=== PATIENT | female | born 1965 | race Caucasian/White ===

== ENCOUNTER 2017-12-06 12:20 | Inpatient (IN) ==
[2017-12-06] MEDS ORDERED: Ipratropium/Albuterol Neb 3 ML IH ONE ×2 (13:20→14:14)
[2017-12-06 13:34] LABS: Hematocrit 37.8 % (35.3-44.9); Hemoglobin 12.6 g/dL (11.5-15.4); Mean Corpuscular HGB Conc 33.3 g/dL (31.6-35.5); Mean Corpuscular Volume 87.1 fL (83.0-100.0); Mean Platelet Volume 8.8 fL (9.4-12.4); Platelet Count 302 K/mcL (140-400); Red Blood Count 4.34 M/mcL (3.82-4.97); Red Cell Distribution Width 13.7 % (11.5-14.5)
--- NOTE | 2017-12-06 13:34 | Emergency Department Note ---
Disposition Clinical Impression: COPD exacerbation Fever Qualifiers: Fever type: unspecified Qualified Code(s): R50.9 - Fever, unspecified Disposition: Admitted As Inpatient Condition: Fair Forms: ED Satisfaction Letter, Work/School Release Time of Disposition: 14:44 General Adult HPI - General Chief complaint: ED General Medical Stated complaint: Flu Like symptoms Time Seen by Provider: 12/06/17 13:15 Source: patient Mode of arrival: ambulatory Limitations: no limitations Nursing Notes Reviewed: Yes Vital Signs Reviewed: Yes - History of Present Illness HPI Narrative: 52-year-old with a history COPD comes in with increasing cough shortness of breath and fever thinks she may also have the flu. Pt Subjective Complaint: Fever cough bodyaches Onset (ago): day(s) Location: upper extremity, lower extremity Radiation: non-radiation Pain Scale: 10 Quality: aching Consistency: constant Improves with: nothing Worsens with: nothing Associated symptoms: Reports: cough, fever/chills - Related Data Home Medications Medication Instructions Recorded Confirmed Albuterol Neb [Proventil Neb] 2.5 mg IH Q4HR PRN 10/20/17 11/03/17 Albuterol Sulfate [Ventolin Hfa] 2 puff IH Q4-6H PRN 10/20/17 11/03/17 Cetirizine HCl [Cetirizine HCl] 10 mg PO DAILY 10/20/17 11/03/17 Fluticasone Propionate Nasal 1 spr NS DAILY PRN 10/20/17 11/03/17 [Flonase] Fluticasone/Vilanterol [Breo 1 puff IH DAILY 10/20/17 11/03/17 Ellipta 100-25 Mcg INH] LORazepam [Ativan] 1 mg PO Q6H PRN 10/20/17 11/03/17 OXcarbazepine [Oxcarbazepine] 300 mg PO BID 10/20/17 11/03/17 Tiotropium [place] [Spiriva 2 puff IH DAILY 11/16/17 11/16/17 Respimat] Azithromycin [Zithromax] 250 mg PO QMWF 11/25/17 11/25/17 Allergies Allergy/AdvReac Type Severity Reaction Status Date / Time egg AdvReac Intermediate Hives Verified 10/20/17 09:18 ibuprofen [From Advil] AdvReac Intermediate Swelling Verified 10/20/17 09:18 of Lip/Tongue/Throat All systems ED: reviewed and negative except as stated. Constitutional: Denies: fever, chills, weakness, weight change Eyes: Denies: eye pain, eye discharge, vision change ENT ED: Denies: ear pain, throat pain, dental pain, hearing loss, epistaxis, congestion, dysphagia Cardiovascular: Denies: chest pain, palpitations, dyspnea on exertion, edema, syncope Respiratory: Reports: cough, dyspnea, wheezes. Denies: hemoptysis, stridor Gastrointestinal: Denies: abdominal pain, nausea, vomiting, diarrhea, constipation, hematemesis, melena, hematochezia Genitourinary: Denies: dysuria, frequency, hematuria, discharge Musculoskeletal: Reports: arthralgia. Denies: back pain, neck pain, myalgia Integumentary: Denies: rash, abrasion, lesions Neurological: Denies: headache, weakness, numbness, paresthesias, confusion, abnormal gait, vertigo Psychiatric: Denies: anxiety, depression, suicidal thoughts, homicidal thoughts , auditory hallucinations, visual hallucinations Endocrine: Denies: fatigue Hematological/Lymphatic: Denies: easy bleeding, easy bruising Allergic/Immunologic: Denies: facial swelling, urticaria Past Medical History - Past Medical History Medical history: Reports: COPD Psychiatric history: Reports: anxiety, depression MANAGER IN HOME history: Reports: no MANAGER IN HOME history - Social History Smoking Status: Former smoker Smokeless Tobacco Status: No Alcohol use: Reports: none Drug use: Reports: none Physical Exam - General Limitations: no limitations General appearance: alert - Head Head exam: atraumatic, normocephalic, normal inspection - Eye Eye exam: Present: normal appearance, PERRL, EOMI - ENT ENT exam: normal exam, normal oropharynx, mucous membranes moist - Neck Neck exam: Present: normal inspection, full ROM, trachea midline - Chest Chest inspection: Present: normal inspection, symmetric chest wall rise - Respiratory Respiratory exam: Present: wheezes, accessory muscle use, prolonged expiratory phase - Cardiovascular Cardiovascular exam: Present: regular rate, normal rhythm, normal heart sounds - Abdominal Exam Abdominal exam: Present: soft, Non-Tender. Absent: tenderness, distention, guarding, rebound, rigidity - Extremities Exam Extremities exam: Present: normal inspection, full ROM. Absent: tenderness, pedal edema - Expanded Lower Extremity Exam Neurovascular/Tendon exam: Absent: motor deficit, sensory deficit, tendon deficit Gait: observed and normal - Back Exam Back exam: Present: normal inspection, full ROM. Absent: tenderness - Neurological Exam Neurological exam: Present: alert, oriented X3 - Psychiatric Psychiatric exam: Present: normal affect, normal mood - Skin Skin exam: Present: warm, dry, intact, normal color Course - Reevaluation(s) Reevaluation #1: 52-year-old with COPD comes in with an exacerbation of COPD. Time: 14:43 - Consultations Consultation #1: Discussed with , admit Time: 14:43 Vital Signs Temperature 101.4 F H 12/06/17 12:50 Pulse Rate 112 12/06/17 12:50 Respiratory Rate 18 12/06/17 12:50 Blood Pressure 114/72 12/06/17 12:50 O2 Sat by Pulse Oximetry 94 12/06/17 12:50 Temperature 101.4 F H 12/06/17 12:50 Pulse Rate 112 12/06/17 12:50 Respiratory Rate 18 12/06/17 14:25 Blood Pressure 114/72 12/06/17 12:50 O2 Sat by Pulse Oximetry 96 12/06/17 14:25 Oxygen Delivery Oxygen Delivery Nasal Cannula Medical Decision Making - Lab Data Result diagrams: 12/06/17 13:15 12/06/17 13:15 Lab Results 12/06/17 12/06/17 12/06/17 Range/Units 13:15 13:15 13:15 WBC 5.9 (4.3-11.1) K/mcL RBC 4.34 (3.82-4.97) M/mcL Hgb 12.6 (11.5-15.4) g/dL Hct 37.8 (35.3-44.9) % MCV 87.1 (83.0-100.0) fL MCH 29.0 (28.0-33.3) pg MCHC 33.3 (31.6-35.5) g/dL RDW 13.7 (11.5-14.5) % Plt Count 302 (140-400) K/mcL MPV 8.8 L (9.4-12.4) fL Seg Neutrophils % 56.0 % Lymphocytes % 28.0 % Monocytes % 16.0 % Neutrophils # 3.3 (1.6-8.9) K/mcL Lymphocytes # 1.7 (0.6-4.6) K/mcL Monocytes # 0.9 (0.0-1.3) K/mcL Reactive Lymphocytes Present A (Not Present) Platelet Estimate Normal (Normal) Sodium 138 (136-145) mEq/L Potassium 3.5 (3.5-5.1) mEq/L Chloride 100 (98-107) mEq/L Carbon Dioxide 31 H (23-29) mEq/L BUN 11 (6-20) mg/dL Creatinine 0.87 (0.60-1.20) mg/dL Est GFR ( Amer) > 60 (> 60) Est GFR (Non-Af Amer) > 60 (> 60) BUN/Creatinine Ratio 13 (6-26) Glucose 99 (70-105) mg/dL Calculated Osmolality 285 (280-300) Lactic Acid 1.0 (0.5-2.2) mmol/L Calcium 9.4 (8.6-10.3) mg/dL - Radiology Data Radiology results reviewed: Yes I reviewed the patient's radiology results. Chest X-Ray 12/06/17 14:07 IMPRESSION: Lungs clear. D/ / Dino Perdue MD / Dino Perdue MD Interpreting Provider: Dino Perdue MD
[2017-12-06 13:48] LABS: BUN/Creatinine Ratio 13 (6-26); Blood Urea Nitrogen 11 mg/dL (6-20); Calcium 9.4 mg/dL (8.6-10.3); Carbon Dioxide 31 mEq/L (23-29); Chloride 100 mEq/L (98-107); Glucose 99 mg/dL (70-105); Osmolality,Calculated 285 (280-300); Potassium 3.5 mEq/L (3.5-5.1); Sodium 138 mEq/L (136-145); eGFR For African Americans > 60 (> 60); eGFR For Non-African Americans > 60 (> 60)
[2017-12-06 14:06] LABS: Lymphocytes # 1.7 K/mcL (0.6-4.6); Monocytes # 0.9 K/mcL (0.0-1.3); Neutrophils # 3.3 K/mcL (1.6-8.9); Platelet Estimate Normal (Normal); Reactive Lymphocytes Present (Not Present)
--- NOTE | 2017-12-06 15:19 | Internal Med History&Physical ---
Date of Encounter: 12/06/17 Time of Encounter: 15:16 Assessment and Plan (1) Bronchitis Current visit: Yes Status: Acute Patient with bronchitis cough productive of thick yellow greenish sputum for 3 days chest x-ray does not show pneumonia (2) Anxiety and depression Current visit: Yes Status: Acute Resume home medication (3) COPD exacerbation Current visit: Yes Status: Acute Acute on chronic COPD exacerbation due to bronchitis was started on IV steroids and DuoNeb treatment Internal Medicine - H&P: HPI Chief complaint: sob Admitted From: Emergency Dept Plans for Post Hospital Care: Home History of present illness: Ms. Andrea is a 52 year old female Patient with history of CVA COPD last PFT shows very severe obstructive pattern of 28% with severe gas exchange abnormality patient has a history of anxiety and depression. Patient presented emergency room with cough productive of thick yellow greenish sputum for about 3 days with increased shortness of breath In the emergency room patient was actively wheezing given breathing treatment chest x-ray does not show pneumonia patient had been admitted for COPD exacerbation treatment. Because of bronchitis was started on Levaquin Past Med Surg Social Fam HX - Past Medical History Medical history: COPD Psychiatric history: anxiety, depression - Social History Smoking Status: Former smoker Smokeless Tobacco Status: No Alcohol use: none Drug use: none - Family History Mother Adopted: No Family Member Ethnicity: Non- Living Status: Still Living Hx Family Cardiac Disorders: Yes (low BP) Hx Family Respiratory Disorders: No Hx Family Cancer: No Hx Family GI Disorders: Yes (Bleeding, unable to locate) Hx Family Endocrine Disorder: No Hx Family Neuromuscular Disorders: No Hx Family Neurologic Disorders: No Hx Family HEENT Disorders: No Hx Family Autoimmune Disorders: No (Glasses, KOTZEBUE) Internal Medicine - H&P: Meds Albuterol Neb [Proventil Neb] 2.5 mg IH Q4HR PRN 10/20/17 [History] Albuterol Sulfate [Ventolin Hfa] 2 puff IH Q4-6H PRN 10/20/17 [History] Cetirizine HCl [Cetirizine HCl] 10 mg PO DAILY 10/20/17 [History] Fluticasone Propionate Nasal [Flonase] 1 spr NS DAILY PRN 10/20/17 [History] Fluticasone/Vilanterol [Breo Ellipta 100-25 Mcg INH] 1 puff IH DAILY 10/20/17 [ History] LORazepam [Ativan] 1 mg PO Q6H PRN 10/20/17 [History] Tiotropium [place] [Spiriva Respimat] 2 puff IH DAILY 11/16/17 [History] Azithromycin [Zithromax] 250 mg PO QMWF 11/25/17 [History] Ipratropium/Albuterol Neb [Duoneb] 3 ml IH Q4H 12/06/17 [History] Levofloxacin [Levaquin] 500 mg PO DAILY 12/06/17 [History] OXcarbazepine [Oxcarbazepine] 600 mg PO HS 12/06/17 [History] Roflumilast [Daliresp] 500 mcg PO DAILY 12/06/17 [History] predniSONE [PredniSONE] See Taper PO DAILY 12/06/17 [History] 3 Allergy/AdvReac Type Severity Reaction Status Date / Time egg AdvReac Intermediate Hives Verified 10/20/17 09:18 ibuprofen [From Advil] AdvReac Intermediate Swelling Verified 10/20/17 09:18 of Lip/Tongue/Throat All Systems PM: A 10-system review of systems was performed and is negative for pertinent findings except as documented above in the HPI. - Constitutional Constitutional: no chills, no fever(s), no night sweats - EENT Eyes: no change in vision, no discharge, no pain, no photophobia Ears: no ear discharge, no ear pain, no tinnitus Nose, mouth and throat: no dysphagia, no nasal discharge, no neck pain, no sore throat - Cardiovascular Cardiovascular ROS IM: dyspnea, dyspnea on exertion - Respiratory Respiratory: dyspnea on exertion, wheezing - Gastrointestinal Gastrointestinal: no abdominal pain, no diarrhea, no hematemesis, no hematochezia, no melena, no nausea, no vomiting - Genitourinary Genitourinary: no change in urinary stream, no dysuria, no flank pain, no hematuria - Musculoskeletal Musculoskeletal ROS IM: no numbness, no tingling - Integumentary Integumentary IM: no rash, no unusual bruising - Neurological Neurological ROS: no confusion, no convulsions, no focal weakness, no numbness, no tingling, no tremor(s) - Constitutional Vitals: Temp Pulse Resp BP Pulse Ox 101.4 F H 112 18 114/72 96 12/06/17 12:50 12/06/17 12:50 12/06/17 14:25 12/06/17 12:50 12/06/17 14:25 General appearance: Present: mild distress - Eye Eye exam: Present: PERRL, conjuntiva pink, sclera anicteric Pupils: Present: PERRL - Respiratory Respiratory exam: Present: prolonged expiratory phase, rhonchi, wheezes - Cardiovascular Cardiovascular exam: Present: RRR, +S1, +S2. Absent: diastolic murmur, gallop, rubs, systolic murmur - GI/Abdominal GI/Abdominal exam: Present: normal bowel sounds, soft, no peritoneal signs. Absent: distended, tenderness - Extremities Exam Extremities exam: Present: warm, radial pulses palpable and symmetrical. Absent : calf tenderness, cyanotic, pedal edema Internal Med - H&P Results - Labs CBC & Chem 7: 12/06/17 13:15 12/06/17 13:15
[2017-12-06] MEDS ORDERED: traMADol 50 MG TABLET PO PRN (15:21)
[2017-12-06] MEDS ORDERED: Naloxone 0.4 MG/ML INJ IVP PRN (15:21)
[2017-12-06] MEDS ORDERED: Acetaminophen 325 MG TABLET PO PRN (15:21)
[2017-12-06] MEDS ORDERED: Fluticasone Propionate Nasal 50 MCG/SPRAY BOTTLE NS PRN (15:25)
[2017-12-06] MEDS ORDERED: *HR* LORazepam 1 MG TABLET PO PRN (15:25)
[2017-12-06] MEDS ORDERED: Ipratropium/Albuterol Neb 3 ML IH PRN (15:26)
[2017-12-06] MEDS ORDERED: 0.9 % Sodium Chloride 1,000 ML IVC SCH (15:30)
[2017-12-06] MEDS: Ipratropium/Albuterol Neb 3 ML IH SCH ×3 (15:33→23:32)
[2017-12-06] MEDS ORDERED: MethylPREDNISolone 40 MG/ML VIAL IVP SCH (16:00)
[2017-12-06 16:16] VITALS: BP 129/83
[2017-12-06] MEDS ORDERED: OXcarbazepine 150 MG TABLET PO SCH (21:00)
[2017-12-07] MEDS ORDERED: *HR* Enoxaparin 40 MG/0.4 ML SYRINGE SQ SCH (06:00)
[2017-12-07] MEDS ORDERED: (Roflumilast [Daliresp] 500 MCG) PO SCH (09:00)
[2017-12-07] MEDS ORDERED: (Fluticasone/Vilanterol [Breo Ellipta 100-25 Mcg Inh] IH SCH (09:00)
[2017-12-07] MEDS ORDERED: Loratadine 10 MG TABLET PO SCH (09:00)
[2017-12-07] MEDS ORDERED: Levofloxacin 750 MG/150 ML 750 MG/150 ML BAG IVPB SCH (09:00)
--- NOTE | 2017-12-14 20:11 | Event Note ---
Date of Encounter: 12/14/17 Time of Encounter: 20:11 Patient left AMA i was not aware that he left AMA
== END 2017-12-06 19:25 | disposition left against medical advice (07) | DRG 202 ==
LOC: 3BNU 12:20 → EMEROO 12:20 → 3BNU 15:49
PROVIDERS: ADMIT Internal Medicine Cardiovascular Disease; ATTEND Registered Nurse

== ENCOUNTER 2020-09-19 17:10 | Inpatient (IN) ==
[2020-09-19] MEDS ORDERED: Ipratropium/Albuterol Neb 3 ML IH ONE (17:39)
[2020-09-19 17:49] LABS: Basophils # 0.1 K/mcL (0.0-0.2); Basophils % 0.6 %; Eosinophils # 0.5 K/mcL (0.0-0.6); Eosinophils % 4.9 %; Hematocrit 36.3 % (35.3-44.9); Hemoglobin 11.8 g/dL (11.5-15.4); Immature Granulocytes % 0.3 % (0-4); Lymphocytes # 2.1 K/mcL (0.6-4.6); Lymphocytes % 21.1 %; Mean Corpuscular HGB Conc 32.5 g/dL (31.6-35.5); Mean Corpuscular Hemoglobin 27.8 pg (28.0-33.3); Mean Corpuscular Volume 85.6 fL (83.0-100.0); Mean Platelet Volume 8.8 fL (9.4-12.4); Monocytes # 0.9 K/mcL (0.0-1.3); Monocytes % 9.4 %; Neutrophils # 6.3 K/mcL (1.6-8.9); Platelet Count 403 K/mcL (140-400); Red Blood Count 4.24 M/mcL (3.82-4.97); Red Cell Distribution Width 12.5 % (11.5-14.5); Segmented Neutrophils % 63.7 %; White Blood Count 9.8 K/mcL (4.3-11.1)
[2020-09-19 18:00] LABS: INR 1.1; Prothrombin Time 12.6 Seconds (9.4-12.1)
[2020-09-19 18:02] LABS: Activated Partial Thrombo Time 31.2 Seconds (26.0-36.0)
[2020-09-19 18:11] LABS: Alanine Aminotransferase 10 Units/L (7-52); Albumin 4.4 g/dL (3.5-5.7); Albumin/Globulin Ratio 1.4 (1.1-2.2); Alkaline Phosphatase 87 Units/L (34-104); Aspartate Amino Transferase 12 Units/L (13-39); BUN/Creatinine Ratio 15 (6-26); Bilirubin,Direct 0.1 mg/dL (0.0-0.2); Bilirubin,Indirect 0.3 mg/dL (0.0-1.0); Bilirubin,Total 0.4 mg/dL (0.3-1.0); Blood Urea Nitrogen 9 mg/dL (6-20); Calcium 9.3 mg/dL (8.6-10.3); Carbon Dioxide 33 mEq/L (23-29); Chloride 100 mEq/L (98-107); Globulin 3.2 g/dL (2.4-3.5); Glucose 95 mg/dL (70-105); Osmolality,Calculated 288 (280-300); Potassium 3.6 mEq/L (3.5-5.1); Sodium 140 mEq/L (136-145); Total Protein 7.6 g/dL (6.4-8.9); eGFR For African Americans > 60 (> 60); eGFR For Non-African Americans > 60 (> 60)
[2020-09-19 18:18] LABS: Troponin I < 0.03 ng/mL (< 0.04)
[2020-09-19] MEDS ORDERED: methylPREDNISolone 125 MG/2 ML VIAL IVP STA (20:47)
[2020-09-20 00:33] LABS: Adenovirus Not Detected (Not Detect); Bordetella Pertussis Not Detected (Not Detect); Chlamydophila pneumoniae Not Detected (Not Detect); Coronavirus 229E Not Detected (Not Detect); Coronavirus HKU1 Not Detected (Not Detect); Coronavirus NL63 Not Detected (Not Detect); Coronavirus OC43 Not Detected (Not Detect); Human Metapneumovirus Not Detected (Not Detect); Human Rhinovirus/Enterovirus Not Detected (Not Detect); Influenza A Subtype 2009 H1 Not Detected (Not Detect); Influenza B Not Detected (Not Detect); Mycoplasma pneumoniae Not Detected (Not Detect); Parainfluenza Virus 1 Not Detected (Not Detect); Parainfluenza Virus 2 Not Detected (Not Detect); Parainfluenza Virus 3 Not Detected (Not Detect); Parainfluenza Virus 4 Not Detected (Not Detect); Respiratory Syncytial Virus Not Detected (Not Detect); SARS-CoV-2 Not Detected (Not Detect)
[2020-09-20] MEDS ORDERED: Ondansetron 4 MG/2 ML VIAL IVP PRN (01:14)
[2020-09-20] MEDS ORDERED: Naloxone 0.4 MG/ML INJ IVP PRN (01:14)
[2020-09-20] MEDS ORDERED: Nitroglycerin 0.4 MG TAB.SUBL SL PRN (01:16)
[2020-09-20] MEDS ORDERED: Fluticasone Propionate Nasal 50 MCG/SPRAY BOTTLE NS PRN (01:17)
[2020-09-20] MEDS ORDERED: Acetaminophen 325 MG TABLET PO PRN (01:17)
[2020-09-20] MEDS ORDERED: Isovue-370 500 ML BOTTLE IVP ONE (01:44)
[2020-09-20] MEDS: Ipratropium/Albuterol Neb 3 ML IH SCH ×6 (03:20→23:51)
[2020-09-20] MEDS: *HR* Heparin 5,000 UNIT/ML VIAL SQ SCH ×3 (06:39→17:57)
[2020-09-20] MEDS: MethylPREDNISolone 40 MG/ML VIAL IVP SCH ×3 (06:39→21:24)
[2020-09-20 06:54] LABS: Basophils % 0.4 %; Hematocrit 33.1 % (35.3-44.9); Hemoglobin 10.9 g/dL (11.5-15.4); Immature Granulocytes % 0.4 % (0-4); Lymphocytes # 0.5 K/mcL (0.6-4.6); Lymphocytes % 9.3 %; Mean Corpuscular HGB Conc 32.9 g/dL (31.6-35.5); Mean Corpuscular Hemoglobin 28.1 pg (28.0-33.3); Mean Corpuscular Volume 85.3 fL (83.0-100.0); Mean Platelet Volume 8.8 fL (9.4-12.4); Monocytes # 0.1 K/mcL (0.0-1.3); Monocytes % 1.1 %; Neutrophils # 4.9 K/mcL (1.6-8.9); Platelet Count 358 K/mcL (140-400); Red Blood Count 3.88 M/mcL (3.82-4.97); Red Cell Distribution Width 12.4 % (11.5-14.5); Segmented Neutrophils % 88.8 %; White Blood Count 5.5 K/mcL (4.3-11.1)
[2020-09-20 07:22] LABS: BUN/Creatinine Ratio 19 (6-26); Blood Urea Nitrogen 13 mg/dL (6-20); Calcium 9.5 mg/dL (8.6-10.3); Carbon Dioxide 31 mEq/L (23-29); Chloride 97 mEq/L (98-107); Glucose 209 mg/dL (70-105); Osmolality,Calculated 290 (280-300); Potassium 3.8 mEq/L (3.5-5.1); Sodium 137 mEq/L (136-145); eGFR For African Americans > 60 (> 60); eGFR For Non-African Americans > 60 (> 60)
[2020-09-20] MEDS ORDERED: Perflutren Lipid Microsphere 1.3 ML in 0.9 % Sodium Chloride 8.7 ML IVP PRN (08:04)
[2020-09-20] MEDS ORDERED: NON-FORMULARY MEDICATION 1 EACH EACH (Fluticasone/Vilanterol [Breo Ellipta 100-25 Mcg Inh] IH SCH (09:00)
[2020-09-20] MEDS ORDERED: BREO ELLIPTA IH SCH (09:00)
[2020-09-20] MEDS ORDERED: NON-FORMULARY MEDICATION 1 EACH EACH (Fluticasone/Umeclidin/Vilanter [Trelegy Ellipta 100- IH SCH (09:00)
[2020-09-20] MEDS: Loratadine 10 MG TABLET PO SCH (09:05)
[2020-09-20] MEDS: Prenatal Vit/FA 1 EACH TABLET PO SCH (09:05)
[2020-09-20] MEDS: Cholecalciferol (D-3) 1,000 UNIT (25MCG) TABLET PO SCH (09:05)
[2020-09-20] MEDS: Roflumilast [Daliresp] 500 MCG PO SCH (09:06)
[2020-09-20] MEDS: traZODone 50 MG TABLET PO SCH ×2 (09:06→21:24)
[2020-09-20] MEDS: Budesonide/Formoterol 160/4.5 1 PUFF INH IH SCH (12:06)
[2020-09-21] MEDS: Ipratropium/Albuterol Neb 3 ML IH SCH ×4 (03:11→13:17)
[2020-09-21] MEDS: *HR* Heparin 5,000 UNIT/ML VIAL SQ SCH (06:18)
[2020-09-21 07:04] VITALS: BP 133/76
[2020-09-21] MEDS ORDERED: Regadenoson 0.4 MG/5 ML SYRINGE IVP ONE (09:51)
[2020-09-21] MEDS ORDERED: *HR* LORazepam 2 MG/ML VIAL IVP ONE (09:55)
[2020-09-21] MEDS: Budesonide/Formoterol 160/4.5 1 PUFF INH IH SCH (11:35)
[2020-09-21] MEDS: Roflumilast [Daliresp] 500 MCG PO SCH (12:59)
[2020-09-21] MEDS: Prenatal Vit/FA 1 EACH TABLET PO SCH (13:05)
[2020-09-21] MEDS: traZODone 50 MG TABLET PO SCH (13:05)
[2020-09-21] MEDS: Loratadine 10 MG TABLET PO SCH (13:06)
[2020-09-21] MEDS: MethylPREDNISolone 40 MG/ML VIAL IVP SCH (13:06)
[2020-09-21] MEDS: Cholecalciferol (D-3) 1,000 UNIT (25MCG) TABLET PO SCH (13:06)
[2020-09-21] MEDS ORDERED: Furosemide 20 MG TABLET PO SCH (15:00)
== END 2020-09-21 15:45 | disposition home or self-care (01) | DRG 190 ==
LOC: 3BNU 17:10 → EMEROOARM 17:10 → 3BNU 09-20 01:28 → SUATTDRO 09-20 14:40
PROVIDERS: ADMIT Family Medicine; ATTEND Internal Medicine